=== PATIENT | female | born 1935 | race Hispanic/Latino ===

== ENCOUNTER 2017-07-08 10:57 | Emergency (ER) | payer MEDICARE, BC ==
[2017-07-08 11:17] VITALS: TEMP 98
--- NOTE | 2017-07-08 12:48 | C.PDOC ---
History Of Present Illness Brit Howard is an 82 year old female, with a past medical history of hypertension and hyperthyroidism, who presents to the emergency department accompanied by son complaining of neck lumps onset for weeks. Patient reports she began developing lumps in the right side of her neck weeks ago. She saw her MD who told her it was her glands, and she made an appointment with an piano bench assembler on Monday. However, this morning her son noticed more lumps on the left side of her neck and prompted her to visit the ED. Patient denies any neck pain or other medical complaints. PMD: Royce Ceballos Time Seen by Provider: 07/08/17 11:35 Chief Complaint (Nursing): ENT Problem History Per: Patient History/Exam Limitations: no limitations Onset/Duration Of Symptoms: Days (weeks) Current Symptoms Are (Timing): Still Present Quality Of Symptoms: denies: Painful Pain Scale Rating Of: 0 Past Medical History Reviewed: Historical Data, Nursing Documentation, Vital Signs Vital Signs: Last Vital Signs Temp 98 F 07/08/17 17:35 Pulse 83 07/08/17 17:35 Resp 18 07/08/17 17:35 BP 209/87 H 07/08/17 17:35 Pulse Ox 100 07/08/17 17:52 - Medical History PMH: Anxiety, HTN, Hypercholesterolemia, Hyperthyroidism Surgical History: No Surg Hx Family History: States: Unknown Family Hx - Social History Hx Tobacco Use: No Hx Alcohol Use: No Hx Substance Use: No - Immunization History Hx Influenza Vaccination: No Review Of Systems Except As Marked, All Systems Reviewed And Found Negative. Musculoskeletal: Negative for: Neck Pain Skin: Positive for: Other (neck lumps) Physical Exam - Physical Exam Appears: No Acute Distress Skin: Normal Color, Warm, Dry Head: Atraumatic, Normacephalic Eye(s): bilateral: Normal Inspection Neck: Normal ROM, Supple, Other (multiple lymph nodes in lateral and posterior region of neck) Cardiovascular: Rhythm Regular, No Murmur Respiratory: Normal Breath Sounds (clear b/l), No Wheezing Gastrointestinal/Abdominal: Normal Exam, Soft, No Tenderness Extremity: Normal ROM, No Pedal Edema, No Deformity, No Swelling Neurological/Psych: Oriented x3 ED Course And Treatment - Laboratory Results Result Diagrams: 07/08/17 14:22 07/08/17 14:22 O2 Sat by Pulse Oximetry: 100 (RA) Pulse Ox Interpretation: Normal Progress Note: Initial Plan: --Neck and chest w/o contrast [CT]. --Comp Metabolic Panel. --CBC w/ differential. --Urinalysis. 15:[address] Ceballos, he had requested a CT of neck, chest and abdomen/pelvis and gave patient referral for it, but she forgot. Dr. Ceballos asked for a CT abdomen/pelvis if possible, and has agreed to see her on Monday in his office. Son at bedside, pt is aware and agreed with discharge plan and follow up with Dr. Ceballos. 17:15 - Upon provider reevaluation patient is feeling better, is medically stable, and requires no further treatment in the ED at this time. Patient will be discharged home. Counseling was provided and all questions were answered regarding diagnosis and need for follow up with PMD. There is agreement to discharge plan. Return if symptoms persist or worsen. Medical Decision Making Medical Decision Makin:[address] FINDINGS: NASOPHARYNX: Unremarkable. SUPRAHYOID NECK: There is abnormal thickening involving right palatine tonsil extending along the right side of the oropharynx to involve the lingual tonsils bilaterally. There is effacement of the right vallecula. The parapharyngeal space is clear. The intrinsic muscles of the tongue are symmetric. INFRAHYOID NECK: Unremarkable larynx, hypopharynx, and supraglottic space. Vocal cords intact. MASS: None. GLANDS: Parotid and submandibular glands unremarkable. Normal size thyroid. 9 mm nodule in right lobe of thyroid. Consider correlation with thyroid ultrasound. LYMPH NODES: Extensive cervical lymphadenopathy, right greater than left. This involves multiple levels and extends to involve supraclavicular lymph nodes bilaterally. CERVICAL SPINE: No fracture. Degenerative disc disease at C5-6 and C6-7. Grade 1 anterolisthesis at C4-5, likely degenerative. OTHER FINDINGS: None. IMPRESSION: Extensive cervical lymphadenopathy extending to the supraclavicular region bilaterally. Abnormal thickening involving the right palatine tonsil, the lingual tonsils bilaterally, right greater than left and the right lateral oropharynx. This may be lymphoid tissue related to the lymphadenopathy. Cannot rule out malignancy. Recommend correlation with direct visual inspection. Consider the possibility of lymphoproliferative disorder. 14:[address] FINDINGS: LUNGS: No pulmonary infiltrate. There is a nodular long linear scar in the right lower lobe. There is a rounded mixed solid and ground-glass density nodule in the anterior basal right lower lobe (series 5, image 82). This measures approximately 10 mm in diameter. Although this could represent a focal infiltrate, the possibility of a neoplastic process must be considered and consideration should be given to close follow-up with CT or evaluation with PET imaging or percutaneous biopsy. Several calcified granulomas are seen in the anterior right upper lobe. 5 mm nodule in the anterior right upper lobe, nonspecific. MEDIASTINUM: Unremarkable thoracic aorta. No aneurysm. Normal sized heart. Main pulmonary artery unremarkable. No vascular congestion. Supraclavicular lymphadenopathy bilaterally. Cervical lymphadenopathy noted bilaterally. Please see separate report of CT neck. No mediastinal or hilar lymphadenopathy appreciated. 10 mm nodule in right lobe of thyroid. Correlate with thyroid ultrasound. PLEURA: No pleural fluid. No pneumothorax. BONES: No fracture. No destructive lesion. UPPER ABDOMEN: 3 mm nonobstructing right upper pole renal calculus. OTHER FINDINGS: None. IMPRESSION: Bilateral supraclavicular lymphadenopathy. This is nonspecific. Please see report of CT neck. 10 mm mixed solid and ground-glass density nodule in the right lower lobe. This is concerning for neoplasm. Consider evaluation with PET- CT or percutaneous biopsy or short interval follow-up with CT chest. Calcified granulomas. Nonobstructing right renal calculus. 10 mm nodule in right lobe of thyroid. Correlate with thyroid ultrasound. 16:34 Abd/Pelvis CT FINDINGS: LOWER THORAX: 10 mm partially solid and partially ground-glass nodule in the right lower lobe. Further evaluation advised. Please see report of CT chest of the same date. Nodular linear scar in right lower lobe. LIVER: Unremarkable. No gross lesion or ductal dilatation. 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 PANCREAS: Unremarkable. No gross lesion or ductal dilatation. SPLEEN: Mildly atrophic. No mass. ADRENALS: Unremarkable. No mass. KIDNEYS AND URETERS: Bilateral punctate nonobstructing renal calculi, 2-3 mm. 7 mm nonspecific high attenuation lesion mid right kidney, possibly hyperdense cyst. Nonspecific low- attenuation 11 mm mass lower pole left kidney, possibly cyst. Correlate with ultrasound examination. , VASCULATURE: Unremarkable. No aortic aneurysm. BOWEL: Unremarkable. No obstruction. No gross mural thickening. APPENDIX: Not identified. No secondary findings. PERITONEUM: Unremarkable. No free fluid. No free air. LYMPH NODES: There is no bulky retroperitoneal lymphadenopathy. There are several enlarged left-sided pelvic lymph nodes. There are shotty right inguinal nodes and significantly enlarged left inguinal lymph nodes. BLADDER: Unremarkable. REPRODUCTIVE: Status post hysterectomy BONES: No acute fracture. OTHER FINDINGS: None. IMPRESSION: Left pelvic and left inguinal lymphadenopathy. No retroperitoneal lymphadenopathy. Porcelain gallbladder. Tiny nonobstructing bilateral renal calculi. Probable renal cysts. Recommend correlation with renal ultrasound on a nonemergent basis. 10 mm mixed ground-glass and solid nodule in right lower lobe. See report of CT chest of the same date. Disposition - Disposition Referrals: Royce Ceballos MD [Staff Provider] - Disposition: HOME/ ROUTINE Disposition Time: 17:10 Condition: STABLE Additional Instructions: Follow up with within 2-3 days. Return to ED if feel worse. Instructions: Lymphadenopathy (ED) Forms: [facility] ([place]) - Clinical Impression Clinical Impression: Lymphadenopathy - Scribe Statement Azael Alaniz All medical record entries made by the Scribe were at my direction and personally dictated by me. I have reviewed the chart and agree that the record accurately reflects my personal performance of the history, physical exam, medical decision making, and the department course for this patient. I have also personally directed, reviewed, and agree with the discharge instructions and disposition.
[2017-07-08 14:26] LABS: BASO # 0.1 K/uL (0.0-0.2); BASO % 0.7 % (0.0-2.0); EOS # 0.1 K/uL (0.0-0.7); EOS % 1.7 % (0.0-4.0); HEMOGLOBIN 10.4 g/dL (11.0-16.0); LYMPH # 2.1 K/uL (1.0-4.3); LYMPH % 24.8 % (20.0-40.0); MEAN CELL VOLUME 92.7 fL (81.0-99.0); MEAN CORPUSCULAR HEMOGLOBIN 30.7 pg (27.0-31.0); MEAN CORPUSCULAR HGB CONC 33.2 g/dL (33.0-37.0); MEAN PLATELET VOLUME 8.1 fL (7.2-11.7); MONO # 0.6 K/uL (0.0-0.8); MONO % 7.1 % (0.0-10.0); NEUT # 5.5 K/uL (1.8-7.0); NEUT % 65.7 % (50.0-75.0); RBC 3.37 Mil/uL (3.80-5.20); RED CELL DISTRIBUTION WIDTH 13.2 % (11.5-14.5); WHITE BLOOD COUNT 8.3 K/uL (4.8-10.8)
[2017-07-08 14:31] LABS: SQUAMOUS EPITHIAL 1 /hpf (0-5); URINE BILIRUBIN NEGATIVE (NEGATIVE); URINE BLOOD NEGATIVE (NEGATIVE); URINE CLARITY Clear (Clear); URINE COLOR Straw (YELLOW); URINE GLUCOSE (UA) NORMAL (Normal); URINE LEUKOCYTE ESTERASE 1+ Leu/uL (Negative); URINE NITRATE NEGATIVE (NEGATIVE); URINE PROTEIN NEGATIVE (NEGATIVE); URINE UROBILINOGEN NORMAL mg/dL (0.2-1.0)
[2017-07-08 14:40] LABS: ALB/GLOB RATIO 0.9 (1.0-2.1); CALCIUM 9.4 mg/dl (8.6-10.4)
--- NOTE | 2017-07-08 14:45 | CT ---
PROCEDURE: CT NECK WITHOUT CONTRAST HISTORY: significant cervical lymphadenopathy COMPARISON: None. TECHNIQUE: CT of the neck without intravenous contrast. Coronal and sagittal reformats generated. Radiation dose: DLP 240.15 mGy-cm This CT exam was performed using one or more of the following dose reduction techniques: Automated exposure control, adjustment of the mA and/or kV according to patient size, and/or use of iterative reconstruction technique. FINDINGS: NASOPHARYNX: Unremarkable. SUPRAHYOID NECK: There is abnormal thickening involving right palatine tonsil extending along the right side of the oropharynx to involve the lingual tonsils bilaterally. There is effacement of the right vallecula. The parapharyngeal space is clear. The intrinsic muscles of the tongue are symmetric. INFRAHYOID NECK: Unremarkable larynx, hypopharynx, and supraglottic space. Vocal cords intact. MASS: None. GLANDS: Parotid and submandibular glands unremarkable. Normal size thyroid. 9 mm nodule in right lobe of thyroid. Consider correlation with thyroid ultrasound. LYMPH NODES: Extensive cervical lymphadenopathy, right greater than left. This involves multiple levels and extends to involve supraclavicular lymph nodes bilaterally. CERVICAL SPINE: No fracture. Degenerative disc disease at C5-6 and C6-7. Grade 1 anterolisthesis at C4-5, likely degenerative. OTHER FINDINGS: None. IMPRESSION: Extensive cervical lymphadenopathy extending to the supraclavicular region bilaterally. Abnormal thickening involving the right palatine tonsil, the lingual tonsils bilaterally, right greater than left and the right lateral oropharynx. This may be lymphoid tissue related to the lymphadenopathy. Cannot rule out malignancy. Recommend correlation with direct visual inspection. Consider the possibility of lymphoproliferative disorder.
--- NOTE | 2017-07-08 14:55 | CT ---
PROCEDURE: CT Chest without contrast HISTORY: cervical lymphadenopathy COMPARISON: None. TECHNIQUE: Contiguous axial images were obtained through the chest without intravenous contrast enhancement. Sagittal and coronal reconstructions were performed. Radiation dose (DLP): 222.11 mGy-cm. This CT exam was performed using one or more of the following dose reduction techniques: Automated exposure control, adjustment of the mA and/or kV according to patient size, and/or use of iterative reconstruction technique. FINDINGS: LUNGS: No pulmonary infiltrate. There is a nodular long linear scar in the right lower lobe. There is a rounded mixed solid and ground-glass density nodule in the anterior basal right lower lobe (series 5, image 82). This measures approximately 10 mm in diameter. Although this could represent a focal infiltrate, the possibility of a neoplastic process must be considered and consideration should be given to close follow-up with CT or evaluation with PET imaging or percutaneous biopsy. Several calcified granulomas are seen in the anterior right upper lobe. 5 mm nodule in the anterior right upper lobe, nonspecific. MEDIASTINUM: Unremarkable thoracic aorta. No aneurysm. Normal sized heart. Main pulmonary artery unremarkable. No vascular congestion. Supraclavicular lymphadenopathy bilaterally. Cervical lymphadenopathy noted bilaterally. Please see separate report of CT neck. No mediastinal or hilar lymphadenopathy appreciated. 10 mm nodule in right lobe of thyroid. Correlate with thyroid ultrasound. PLEURA: No pleural fluid. No pneumothorax. BONES: No fracture. No destructive lesion. UPPER ABDOMEN: 3 mm nonobstructing right upper pole renal calculus. OTHER FINDINGS: None. IMPRESSION: Bilateral supraclavicular lymphadenopathy. This is nonspecific. Please see report of CT neck. 10 mm mixed solid and ground-glass density nodule in the right lower lobe. This is concerning for neoplasm. Consider evaluation with PET-CT or percutaneous biopsy or short interval follow-up with CT chest. Calcified granulomas. Nonobstructing right renal calculus. 10 mm nodule in right lobe of thyroid. Correlate with thyroid ultrasound.
[2017-07-08] MEDS ORDERED: Iodixanol 320 mg/ml 150 ml Bottle IV ONE (16:21)
--- NOTE | 2017-07-08 17:01 | CT ---
PROCEDURE: CT Abdomen and Pelvis without intravenous contrast HISTORY: lymphadenopathy, r/o lymphoma COMPARISON: None. TECHNIQUE: Without contrast.. Contrast Dose: 0 Radiation dose: Total exam DLP = 550.18 mGy-cm. This CT exam was performed using one or more of the following dose reduction techniques: Automated exposure control, adjustment of the mA and/or kV according to patient size, and/or use of iterative reconstruction technique. FINDINGS: LOWER THORAX: 10 mm partially solid and partially ground-glass nodule in the right lower lobe. Further evaluation advised. Please see report of CT chest of the same date. Nodular linear scar in right lower lobe. LIVER: Unremarkable. No gross lesion or ductal dilatation. 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 PANCREAS: Unremarkable. No gross lesion or ductal dilatation. SPLEEN: Mildly atrophic. No mass. ADRENALS: Unremarkable. No mass. KIDNEYS AND URETERS: Bilateral punctate nonobstructing renal calculi, 2-3 mm. 7 mm nonspecific high attenuation lesion mid right kidney, possibly hyperdense cyst. Nonspecific low-attenuation 11 mm mass lower pole left kidney, possibly cyst. Correlate with ultrasound examination. , VASCULATURE: Unremarkable. No aortic aneurysm. BOWEL: Unremarkable. No obstruction. No gross mural thickening. APPENDIX: Not identified. No secondary findings. PERITONEUM: Unremarkable. No free fluid. No free air. LYMPH NODES: There is no bulky retroperitoneal lymphadenopathy. There are several enlarged left-sided pelvic lymph nodes. There are shotty right inguinal nodes and significantly enlarged left inguinal lymph nodes. BLADDER: Unremarkable. REPRODUCTIVE: Status post hysterectomy BONES: No acute fracture. OTHER FINDINGS: None. IMPRESSION: Left pelvic and left inguinal lymphadenopathy. No retroperitoneal lymphadenopathy. Porcelain gallbladder. Tiny nonobstructing bilateral renal calculi. Probable renal cysts. Recommend correlation with renal ultrasound on a nonemergent basis. 10 mm mixed ground-glass and solid nodule in right lower lobe. See report of CT chest of the same date.
[2017-07-08 17:36] VITALS: BP 209/87; PULSE 83; RESP 18
[2017-07-08 17:52] VITALS: O2SAT 100
== END 2017-07-08 17:35 | disposition home or self-care (01) ==
LOC: C.ER 10:57
DX: R59.1 Generalized enlarged lymph nodes (principal); I10 Essential (primary) hypertension; E78.00 Pure hypercholesterolemia, unspecified
CPT/HCPCS: 70490; 71250; 74176; 80053; 81001; 85025; 99284; Q9967

== ENCOUNTER 2017-07-19 05:44 | Day surgery (SDC) | payer MEDICARE, BC ==
[2017-07-19] MEDS ORDERED: Bupivacaine 0.5% Inj(30mL) ONE (07:30)
[2017-07-19] MEDS ORDERED: Lidocaine 1% Inj (20ml) ONE (07:30)
[2017-07-19] MEDS ORDERED: Vancomycin 1 gm/D5W 200 ml 0 GM/0 ML BAG IVPB ONE (07:31)
--- NOTE | 2017-07-19 07:49 | CP.SDSHP ---
Same Day Surgery H & P - History Proposed Procedure: Lymph node biposy right neck Pre-Op Diagnosis: Lymphadenopathy - Previous Medical/Surgical History Cardiac: Hypertension, ASHD/CAD, Other Comments: Hypothyroid, weightloss - Allergies Allergies: Allergies Penicillins Allergy (Intermediate, Verified 07/17/17 07:30) RASH - Physical Exam General Appearance: well apearing no acute distress Vital Signs: Vital Signs 07/19/17 06:05 Temperature 97.6 F Pulse Rate 75 Respiratory 18 Rate Blood Pressure 167/70 H O2 Sat by Pulse 99 Oximetry Mental Status: Alert & Oriented x3 Neuro: WNL Heart: WNL Lungs: WNL GI: WNL - {Optional Preform as Required} Abdomen: WNL Integument: WNL ENT: WNL - Impression Impression: Well apeaing pt ready for OR Pt. Evaluated Today:Candidate for Anesthesia & Procedure: Yes - Date & Time Date: 07/19/17 Time: 07:49 Short Stay Discharge - Short Stay Discharge Admitting Diagnosis/Reason for Visit: LYMPHADENOPATHY Disposition: HOME/ ROUTINE Follow-up: 7-10 days Instructions: Lymph Node Biopsy (DC) Additional Instructions (Diet, Activity): You have dissolvable stitches, glue and surgical tape. You may remove top bandage tomorrow and shower however do not remove strip of tape, it will fall off on its own eventually, do not peel off surgical glue it will fall off eventually. Do not take a bath or soak your neck for two weeks. You can resume all home meds, you have no other activity restrictions.
[2017-07-19] MEDS ORDERED: Midazolam 2 MG/2 ML VIAL ONE (07:58)
[2017-07-19] MEDS ORDERED: Clindamycin 600mg/50ml NS 600 MG/50 ML BAG IVPB ONE (08:02)
[2017-07-19] MEDS ORDERED: Oxycodone/Acetaminophen 5/325 mg Tab PO PRN (08:50)
[2017-07-19 09:55] VITALS: O2SAT 95
[2017-07-19 10:46] VITALS: BP 170/79; PULSE 63; RESP 18; TEMP 97.9
--- NOTE | 2017-07-19 19:42 | OP ---
PROCEDURE DATE: 07/19/2017 PREOPERATIVE DIAGNOSIS: Lymphadenopathy, right neck. POSTOPERATIVE DIAGNOSIS: Lymphadenopathy, right neck. PROCEDURE CARRIED OUT: Right cervical lymph node biopsy. SURGEON: Moody Vega Jr., MD COST AND RISK ANALYSIS MANAGER: Dr. Marroquin ANESTHESIA ADMINISTERED BY: Jaime. INDICATIONS: The patient is an older woman who is presently complaining of lymphadenopathy and weight loss. Her past medical history was, otherwise, unremarkable. OPERATIVE FINDINGS: No nerves were cut or damaged during the procedure and prior to the procedure and after the procedure, the patient had good function of her spinal accessory nerve. Lymph node was removed, a large lymph node, measuring approximately 2 cm in size. The pathology was reviewed with the pathologist ahead of time and was submitted in the first date for both culture and for a histologic exam evaluation. DESCRIPTION OF PROCEDURE: The patient was given local anesthesia. The area had been marked and agreed on. An incision was made directly over it and the area was removed by sharp and blunt dissection. Nerves were carefully identified, no Bovie was used. The wound was then closed with Monocryl sutures, subcuticular closure and Steri-Strips. Blood loss for the procedure was 5 mL. The operation carried out is right cervical lymph node biopsy. Moody Vega Jr., MD
== END 2017-07-19 10:39 | disposition home or self-care (01) ==
LOC: C.SDS 05:44
PROVIDERS: ATTEND Surgery Vascular Surgery
DX: C83.01 Small cell B-cell lymphoma, lymph nodes of head, face, and neck (principal); E03.9 Hypothyroidism, unspecified; I10 Essential (primary) hypertension; I25.10 Atherosclerotic heart disease of native coronary artery without angina pectoris; Z88.0 Allergy status to penicillin
CPT/HCPCS: 38500; 87015; 87070; 87101; 87116; 87206; 88307; J2250; J3010